=== PATIENT | male | born 1965 | race Caucasian/White ===

== ENCOUNTER 2019-06-15 05:27 | Day surgery (SDC) | payer BC, SELFPAY ==
[2019-04-11 08:44] VITALS: BMI 34.4
--- NOTE | 2019-06-14 11:02 | EKG12_ITS ---
Test Reason : PRE OP Blood Pressure : / mmHG Vent. Rate : 072 BPM Atrial Rate : 072 BPM P-R Int : 162 ms QRS Dur : 104 ms QT Int : 394 ms P-R-T Axes : 032 049 047 degrees QTc Int : 431 ms Normal sinus rhythm Normal ECG Confirmed by DALTON PRIEST, BERONICA ([id number]), supervising film or videotape editor DEVYN LOVING ([id number]) on 06/18/2019 11:43:12 AM Referred By: Jvaed Arvizu Confirmed By:JD HOFFMAN MD
--- NOTE | 2019-06-14 21:43 | PCM.HP.BLA ---
History and Physical Date of Admission: 06/15/19 HISTORY OF PRESENT ILLNESS 53 year old man presents for evaluation for abdominal wall contouring after weight loss from a laparoscopic gastric sleeve procedure in May,. He weighed 350 lbs initially and after surgery came down to 235 lbs. He has complaints of an abdominal panniculus from redundant skin and subcutaneous tissue after his weight loss. He has abdominal wall skin crease intertrigo for which he has used powders for relief. He also has concerns about some redundant skin and subcutaneous tissue in his flank areas and gluteal areas. He denies fever. He denies trauma. He has decided he wants to proceed with just the abdominal panniculectomy with completion abdominoplasty at this time. PAST MEDICAL HISTORY Arthritis Kidney stones PAST SURGICAL HISTORY Gastric bypass status for obesity ALLERGIES No Known Allergies MEDICATIONS NK FAMILY HISTORY Other - Arthritis, High cholesterol SOCIAL HISTORY Smoking Status: Unknown if ever smoked alcohol intake: never substance use type: does not use REVIEW OF SYSTEMS General - Denies fever and fatigue. Has had 115 lb weight loss after laparoscopic gastric sleeve procedure in May,. Eyes - Denies cataracts and glaucoma. ENT - Denies nasal congestion and sore throat. Endocrine - Denies excessive thirst and urination. Skin - Denies suspicious lesions and skin cancer. Has abdominal wall skin crease intertrigo. Musculoskeletal - Denies joint pain, weakness of muscles and joints, back pain, and arthritis. Has joint stiffness. Neuro - Denies headaches. Cardiovascular - Denies chest pain, fatigue, and shortness of breath with exertion. Psych - Denies anxiety and depression. Respiratory - Denies chronic cough and shortness of breath. Gastrointestinal - Denies nausea, vomiting, diarrhea, and constipation. Hematologic - Denies abnormal bruising and bleeding. Genitourinary - Denies hematuria and urinary frequency. PHYSICAL EXAMINATION General - Alert and Oriented HEENT - PERRL. EOMI. Throat is clear. Neck - Supple and nontender. No cervical adenopathy. Lungs - Clear to auscultation. Heart - Regular rate and rhythm. Abdomen - Soft and nondistended. No evidence of hernia formation. Has redundant skin and subcutaneous tissue in the lower anterior abdominal wall with an abdominal panniculus. No active abdominal wall skin crease noted at this time. Abdominal panniculus is nontender. Skin shows moderate elasticity. Has redundant skin and subcutaneous tissue in his flank areas and superior gluteal/lower back areas. Extremities - FROM. No axillary adenopathy. Radial pulses are palpable. No inguinal adenopathy. Femoral pulses are palpable. Neuro - CN II-XII grossly intact. Psych - Normal mood and affect. ASSESSMENT 1. Abdominal panniculus. 2. Excessive and redundant skin and subcutaneous tissue abdominal wall. 3. Diastasis of abdominal recti muscles. 4. Abdominal wall skin crease intertrigo. 5. Weight loss from gastric sleeve procedure. 6. Isolated adiposity bilateral flank areas and superior gluteal/lower back areas. PLAN Patient has redundant skin and subcutaneous tissue in his abdominal wall with a panniculus with associated intertrigo. He also has redundant skin and subcutaneous tissue with isolated adiposity in his bilateral flank areas and superior gluteal/lower back areas. He would benefit from an abdominal panniculectomy to help with his symptomatology. His insurance company denied the procedure at this time. He has decided to pursue the surgery as he knows he will be financially responsible for it. Discussed with the patient about available financing. He wants to hold off on the flank and buttocks surgery at this time. I had told him that I limit cosmetic surgery for each area to 6 hours. Therefore the abdominal surgery would be separate from the flank and buttocks surgery. His job cannot handle an extended amount of time off so he will proceed with the abdominal surgery only at this time. Also preoperatively he will need lab studies due to his weight reduction surgery (CBC, CMP, PT/PTT, Prealbumin, Uric Acid, Ferritin, B12/folate, Fat-Soluble Vitamins). Surgery will be done under general anesthesia on an outpatient basis. Patient was informed of the risks and complications of the procedure including alternatives to surgery. These were discussed with the patient personally. Patient voices understanding and wishes to proceed. Some of the risks and complications were included in a form from the [employer].
[2019-06-15] VITALS (11 sets, daily range): BP systolic 88–114; BP diastolic 52–91; PULSE 55–88; RESP 14–16; TEMP 36.4–36.7; O2SAT 92–96; BMI 34.2
[2019-06-15] MEDS: Lactated Ringers 1,000 ML 100 ML IV (06:34)
[2019-06-15] MEDS: Cefazolin 2 GM in 0.9% Normal Saline 100 ML IV (07:42)
[2019-06-15] MEDS: Mupirocin Ointment 22gm Tube 1 APPLIC (11:58)
--- NOTE | 2019-06-15 12:45 | PCM.OPRPT ---
Report of Operation Date of Procedure: 06/15/19 Pre-Operative Diagnosis: 1. Abdominal panniculus. 2. Excessive and redundant skin and subcutaneous tissue abdominal wall. 3. Diastasis of abdominal recti muscles. 4. Abdominal wall skin crease intertrigo. 5. Weight loss from gastric sleeve procedure. 6. Isolated adiposity bilateral flank areas and superior gluteal/lower back areas. Post-Operative Diagnosis: Same. Surgery/Procedure Performed:: 1. Abdominal panniculectomy with completion abdominoplasty. 2. Repair of diastasis of abdominal recti muscles. Description of Surgical Findings:: 53 year old man presents for evaluation for abdominal wall contouring after weight loss from a laparoscopic gastric sleeve procedure in May,. He weighed 350 lbs initially and after surgery came down to 235 lbs. He has complaints of an abdominal panniculus from redundant skin and subcutaneous tissue after his weight loss. He has abdominal wall skin crease intertrigo for which he has used powders for relief. He also has concerns about some redundant skin and subcutaneous tissue in his flank areas and gluteal areas. He denies fever. He denies trauma. He has decided he wants to proceed with just the abdominal panniculectomy with completion abdominoplasty at this time. Patient was informed of the risks and complications of the procedure including alternatives to surgery. These were discussed with the patient personally. Patient voices understanding and wishes to proceed. Some of the risks and complications were included in a form from the [employer]. IV Fluids - 2500 ml. Urine Output - 300 ml. I used Noel absorbable hemostat, (I used 2 vials). Reference Number - [id number]. Lot Number - [id number]. Expiration - February 22, 2024. law office manager: Xi Del Toro. law office manager: Leena Holley. Type of Anesthesia:: General Specimen's removed: The abdominal wall skin and subcutaneous tissue was not sent to Pathology since this was a cosmetic procedure. Drains: Timothy x2. Estimated Blood Loss (mL): 150 ml. Fluids Replaced: 2800 ml (IV Fluids 2500 ml, Urine Output 300 ml). Description of Procedure: In the preop area, the patient stood for markings. I marked the sternum to the umbilicus and from the umbilicus to the pubic area. I augustine horizontal markings in the abdominal wall skin crease by the pubis. Laterally the markings extended to the anterior superior iliac spine. Patient was taken to OR in supine position and was placed under general anesthesia. The abdomen was prepped and draped in the usual fashion. Ioban draping was also used. SCD's were placed for DVT prophylaxis. Perioperative antibiotics were given intravenously. A ogden catheter was placed. Using xylocaine with epinephrine, the horizontal marking was infiltrated. After waiting 5 minutes for the anesthetic to take effect, I made incision in the pubic area down through Scot's fascia to the abdominal wall fascia. Dissection proceeded superiorly to the umbilicus. I made a naomy incision in the umbilicus and dissected the abdominal wall skin flap off the umbilicus. I then proceeded with dissection up to the xiphoid. Lateral dissection was done to the lateral rectus sheath. There was about 4.5 cm of diastasis of his abdominal recti muscles. The wound was irrigated with Irrisept 0.05% Chlorhexidine solution followed by saline irrigation. Hemostasis was obtained with electrocautery. Repair of his diastasis of his abdominal recti muscles was done with 0 Surgipro in two layers. The first layer was a simple running suture. This was followed by horizontal mattress interrupted buried sutures. I placed two size 15 Timothy drains through separate stab incisions laterally and secured to the skin with 3-0 Nylon suture. I then excised sub-Scot's fat in the abdominal wall skin flap to minimize seroma postoperatively. I sprayed Noel absorbable hemostat into the wound also to minimize seroma formation postoperatively. I used two vials. I temporarily closed the incision with the patient flexed 30 degrees with 2-0 Vicryl interrupted sutures. The excess skin laterally was placed on a small amount of stretch and excised. After temporarily closing the incision, I placed vertical markings to aid in wound closure. I palpated the umbilicus through the skin and made an inferior V shaped incision. The temporary sutures were removed. Where the umbilical incision was made, I thinned out some of the subcutaneous tissue around the incision. I placed 3-0 Vicryl sutures from the dermis of the abdominal wall skin flap to the abdominal wall fascia and then the dermis of the umbilicus. I then placed 2-0 Vicryl sutures from the underlying fascia of the abdominal wall skin flap to the abdominal wall fascia with the flap placed on a little stretch to help minimize seroma formation. I placed 3 sutures on either side of the umbilicus. There was some redundant subcutaneous tissue in the pubic area that was excised to help with final contouring. Additional saline irrigation was done followed by Hemostasis with electrocautery. I then closed the abdominal incision with 2-0 Vicryl figure of eight interrupted sutures for Scot's fascial layer. The deep dermis and subcutaneous tissue was approximated with 3-0 Monocryl interrupted sutures. The skin was approximated with 3-0 V lock unidirectional barbed running subcuticular suture. The 3-0 Vicryl sutures were then closed around the umbilicus in the four quadrants. Additional 3-0 Vicryl interrupted sutures were used for final umbilical closure. Initially we placed Histoacryl skin tissue adhesive on the incision. Right away we noticed some redness which could be related to an allergic reaction. It was wiped off quickly before drying. Antibiotic ointment was applied to the incision instead. Xeroform gauze was placed in the umbilicus followed by a gauze dressing to absorb moisture. Kerlix gauze was placed over the lower incision followed by ABD pads compression. An abdominal binder was then placed. At the end of the procedure, the ogden catheter was removed. The skin and subcutaneous tissue that was excised was weighed in the OR and measured 1924 grams. Patient tolerated the procedure well and was sent to PACU in satisfactory condition. Before discharge, will obtain labs for continued evaluation of his weight reduction surgery. These include (CBC, CMP, PT/PTT, Prealbumin, Uric Acid, Ferritin, Vitamin B12, Folate, Vitamin A, and Vitamin D). Also before discharge he will receive chemoprophylaxis with Lovenox to minimize the risk of DVT in these patients. Postop ambulation is encouraged. Patient will be sent home on antibiotics and pain medication. Patient will followup on 06/18/19. The drains will be removed in 10-14 days. He will be maintained on antibiotics until the drains are removed. He will maintain the abdominal wall binder for several weeks and keep head elevated and maintain lifting restriction. Grafts/Implants Used: None. - Complications None. - Admit VTE Documentation VTE Present on Admission: No VTE Mechan Device Prophylaxis: SCD's VTE Pharm Prophylaxis ordered?: Yes Code Visit Surgery Charges - Cosmetic CPT - 04678 ICD-10 - E65, L98.7, L30.4, R63.4, Z98.84, M62.08 89081 L98.7, M62.08, R63.4, Z98.84, E65, L30.4
--- NOTE | 2019-06-15 12:58 | PCM.DC ---
You will use the following diet at home:: No restrictions, Other - encourage nutritional supplementation with protein to help the healing process. Discharge Activity: May not drive while taking narcotic pain medications., May Not Shower - until the drains are removed., - - keep head elevated. no heavy lifting. wear abdominal binder down over the hips. May shower in (days): 14 - after the drains are removed. May resume sexual activity in: 10-14 days Weight Bearing Status: Weight bearing as tolerated Lifting Restrictions: 20 lbs. Keep extremity elevated above heart level: - - elevate head. Call your doctor if your incision/area has: Continuous Slow Oozing, Sudden Increased Bleeding, Increased Pain/ Swelling, Increased Redness, Foul Smelling Discharge, Swelling at the incision site Call your doctor if you observe: Fever of 101 or Higher, Coldness, Increased Pain, Shortness of breath, Chest pain, Calf discomfort, Uncontrolled pain Suture Line Care: - - apply antibiotic ointment to suture line and umbilcus daily. Change Dressing in (Days):: 1 - dry dressings daily to suture line and in umbilicus. Cleanse incision/area with: - - may get incision wet in the shower after the drains are removed. Drain: Suction - elder drain x2 to bulb suction. empty and record output daily. Allergies/Adverse Reactions: Allergies No Known Allergies Allergy (Verified 06/08/19 16:03) Medications to take at Discharge Cefadroxil [Duricef] 500 mg PO BID #30 cap 06/15/19 Diazepam [Valium] 5 mg PO 4X/DAY PRN PRN #30 tablet 06/15/19 Docusate Sodium [Colace] 100 mg PO BID #60 cap 06/15/19 Lactobacillus Acidophilus/Fos [Acidophilus Probiotic Tablet] 1 ea PO BID #30 tab 06/15/19 Oxycodone HCl/Acetaminophen [Percocet 5/325] 1 tablet PO Q4H PRN PRN 7 Days #40 tablet 06/15/19 proMETHazine tablet [Phenergan tablet] 25 mg PO 4X/DAY PRN PRN #30 tab 06/15/19 The following prescriptions were given: Lactobacillus Acidophilus/Fos [Acidophilus Probiotic Tablet] 1 ea PO BID #30 tab Transmission Status: Pending to [facility] Docusate Sodium [Colace] 100 mg PO BID #60 cap Transmission Status: Pending to [id number] Cefadroxil [Duricef] 500 mg PO BID #30 cap Transmission Status: Pending to [facility] Oxycodone HCl/Acetaminophen [Percocet 5/325] 1 tablet PO Q4H PRN PRN 7 Days #40 tablet PRN Reason: Pain Transmission Status: Sent to [facility] proMETHazine tablet [Phenergan tablet] 25 mg PO 4X/DAY PRN PRN #30 tab PRN Reason: Nausea Transmission Status: Pending to [facility] Diazepam [Valium] 5 mg PO 4X/DAY PRN PRN #30 tablet PRN Reason: Spasms Transmission Status: Sent to [facility] Primary Care Physician: Care Physician,No Primary [Primary Care Provider] - Test Results: Test results from this visit will be discussed in further detail at your follow-up appointment, if applicable. Please Follow Up With: Javed Arvizu MD When: tuesday06/18/19. call [phone] for appt. Proposed Discharge Date: 06/15/19
[2019-06-15 13:40] LABS: Hematocrit 41.9 % (40-54); Mean Corp Hgb Conc 33.4 g/dL (32-36); Mean Corpuscular Hgb 29.8 pg (27.0-32.0); Mean Corpuscular Volume 89.1 fL (80-94); Mean Platelet Vol. 9.1 fl (6.2-12.0); Platelet Count 232 K/mm3 (150-450); RBC Distribution Width CV 12.8 % (11.6-14.6); RBC Distribution Width SD 42.2 fl (35.1-43.9)
[2019-06-15 13:44] LABS: International Normalized Ratio 1.1; Prothrombin Time (Protime)PT. 14.1 SECONDS (11.7-14.9)
[2019-06-15 13:51] LABS: Partial Thromboplast Time 24.2 Seconds (24.1-36.2)
[2019-06-15 14:14] LABS: Vitamin B12 710 pg/mL (211-911)
[2019-06-15 14:44] LABS: AST(SGOT) 17 U/L (15-37); Alanine Aminotransfer ALT/SGPT 13 U/L (16-61); Albumin, Serum 3.4 g/dL (3.2-5.0); Alkaline Phosphatase 52 U/L (45-117); Anion Gap 5 (5-15); BUN 19 mg/dL (7-18); BUN/Creat Ratio 15.3 RATIO (10-20); Calcium,Total 8.3 mg/dL (8.5-10.1); Chloride 108 mmol/L (98-107); Creatinine, Serum 1.24 mg/dL (0.70-1.30); EST Glomerular Filtration Rate 64 mL/min (>60); Est Glom Filt Rate - Afr Amer 78 mL/min (>60); Estimated Creatinine Clearance 73.88 ml/min; Ferritin 88 ng/mL (26-388); Globulin 3.4 g/dL (2.2-4.2); Glucose 161 mg/dL (74-106); Potassium 3.7 mmol/L (3.5-5.1); Prealbumin 23.6 mg/dL (20.0-40.0); Protein, Total 6.8 g/dL (6.4-8.2); Sodium Level 141 mmol/L (136-145); Uric Acid 5.3 mg/dL (3.5-7.2)
[2019-06-15] MEDS: oxyCODONE 5 MG Tablet 10 MG PO (16:48)
[2019-06-15] MEDS: Enoxaparin 40 MG/0.4 ML Syringe SC (17:09)
[2019-06-25 13:07] LABS: Vitamin A, Retinol 41.1 ug/dL (20.1-62.0)
== END 2019-06-15 17:41 | disposition home or self-care (01) ==
LOC: SDC 05:28 → AC 05:30
PROVIDERS: Referring Provider Surgery; Visit Provider Surgery
PROC: (CPT 15830; principal; 2019-06-15 07:15)
DX: L98.7 Excessive and redundant skin and subcutaneous tissue (principal); E65 Localized adiposity; M62.08 Separation of muscle (nontraumatic), other site; L30.4 Erythema intertrigo; M19.90 Unspecified osteoarthritis, unspecified site; Z79.899 Other long term (current) drug therapy; Z87.442 Personal history of urinary calculi; Z98.84 Bariatric surgery status
CPT/HCPCS: 15830; 22999; 80053; 82607; 82652; 82728; 82746; 84134; 84550; 84590; 85027; 85610; 85730; 93005; J7120; J2405

== ENCOUNTER 2021-02-27 16:50 | Observation (INO) | payer SELFPAY ==
[2020-07-10 15:53] VITALS: BMI 33.1
--- NOTE | 2021-02-20 09:32 | EKG12_ITS ---
Test Reason : PRE OP Blood Pressure : / mmHG Vent. Rate : 066 BPM Atrial Rate : 066 BPM P-R Int : 166 ms QRS Dur : 100 ms QT Int : 396 ms P-R-T Axes : 052 061 065 degrees QTc Int : 415 ms Normal sinus rhythm Normal ECG Confirmed by ROZINA PRIEST, HO ([id number]), editor department DEVYN LOVING ([id number]) on 02/23/2021 9:37:45 AM Referred By: Javed Arvizu Confirmed By:HO HANDY MD
--- NOTE | 2021-02-26 23:14 | PCM.HP.BLA ---
History and Physical Date of Admission: 02/27/21 HISTORY OF PRESENT ILLNESS 54 year old man presents for evaluation for body contouring after weight loss from a laparoscopic gastric sleeve procedure in May,. He weighed 350 lbs initially and after surgery came down to 235 lbs. He underwent an abdominoplasty on 06/15/19. He also has concerns about some redundant skin and subcutaneous tissue in his flank areas and superior gluteal/lower back areas. He denies fever. He denies trauma. He also has concerns about redundant skin and subcutaneous tissue in his anterior neck that is bothersome. PAST MEDICAL HISTORY Diastasis of rectus abdominis Intertrigo Recent weight loss Excessive and redundant skin and subcutaneous tissue Abdominal panniculus Arthritis Kidney stones PAST SURGICAL HISTORY Gastric bypass status for obesity abdominoplasty ALLERGIES No Known Allergies MEDICATIONS Lactobacillus acidophilus FAMILY HISTORY Other - Arthritis, High cholesterol SOCIAL HISTORY Smoking Status: Never smoker alcohol intake: never substance use type: does not use REVIEW OF SYSTEMS General - Denies fever and fatigue. Has had 115 lb weight loss after laparoscopic gastric sleeve procedure in May,. Eyes - Denies cataracts and glaucoma. ENT - Denies nasal congestion and sore throat. Endocrine - Denies excessive thirst and urination. Skin - Denies suspicious lesions and skin cancer. Had abdominoplasty on 06/15/19. Musculoskeletal - Denies joint pain, weakness of muscles and joints, back pain, and arthritis. Has joint stiffness. Neuro - Denies headaches. Cardiovascular - Denies chest pain, fatigue, and shortness of breath with exertion. Psych - Denies anxiety and depression. Respiratory - Denies chronic cough and shortness of breath. Gastrointestinal - Denies nausea, vomiting, diarrhea, and constipation. Hematologic - Denies abnormal bruising and bleeding. Genitourinary - Denies hematuria and urinary frequency. PHYSICAL EXAMINATION General - Alert and Oriented HEENT - PERRL. EOMI. Throat is clear. Has some mild cheek sagging with mild jowl formation. Has moderate nasolabial folds. Has dermatochalasis upper eyelids bilaterally. Lower eyelids show no evidence of scleral show or ectropion. He does have mild brow ptosis just below the superior orbital rim. Mild facial rhytids noted. Oral commissures show no drooping at this time. Neck - Supple and nontender. No cervical adenopathy. Has redundant skin and subcutaneous tissue in the anterior neck. There is decussation of the platysma muscles. Hyoid bone slightly obtuse. Skin shows moderate elasticity. Lungs - Clear to auscultation. Heart - Regular rate and rhythm. Abdomen - Soft and nondistended. No evidence of hernia formation. Has good abdominal wall contour anteriorly. Has redundant skin and subcutaneous tissue in his flank areas and superior gluteal/lower back areas. Skin shows moderate elasticity. Extremities - FROM. No axillary adenopathy. Radial pulses are palpable. No inguinal adenopathy. Femoral pulses are palpable. Neuro - CN II-XII grossly intact. Psych - Normal mood and affect. ASSESSMENT 1. Redundant skin and subcutaneous tissue anterior neck. 2. Decussation of platysma muscles anterior neck. 3. Weight loss from gastric sleeve procedure. 4. Isolated adiposity bilateral flank areas and superior gluteal/lower back areas with redundant skin and subcutaneous tissue. 5. History of abdominoplasty. PLAN Patient has redundant skin and subcutaneous tissue with isolated adiposity in his bilateral flank areas and superior gluteal/lower back areas. He would benefit from a completion lower body lift with dermolipectomy involving bilateral flanks and superior gluteal/lower back areas. He also has redundant skin and subcutaneous tissue anterior neck with underlying decussation of platysma muscles. He would benefit from a neck lift to help with his neck contouring. He is not interested in any other facial rejuvenation at this time (face lift, blepharoplasty, and brow lift). I told him in the future, those procedures can be done. Right now he is concentrating on his neck. Once his neck is improved, he will notice that his face and eyelids will need rejuvenation improvement as well. These surgeries are not covered by his insurance carrier. He knows he will be financially responsible for it. Discussed with the patient about available financing. Will proceed with the completion lower body lift at this time. After healing will proceed with the neck lift. At the time of the lower body lift, will consider some lipoplasty to help with contouring as well. Surgeries will be done under general anesthesia with a surgical observation overnight stay in the hospital. He will have drains in and be maintained on antibiotics until the drains are removed. He will also have compression garments as well for several weeks to minimize seroma formation. Also preoperatively he will need lab studies due to his weight reduction surgery (CBC, CMP, PT/PTT, Prealbumin, Uric Acid, Ferritin, B12/folate, Vitamin A and D). He will talk to his PCP about the lab studies. Patient was informed of the risks and complications of the procedure including alternatives to surgery. These were discussed with the patient personally. Patient voices understanding and wishes to proceed. Some of the risks and complications were included in a form from the [employer]. Will provide a package monroy for the procedures. Once he decides on timing for the surgeries, he will return for a preop visit. Any last minute questions will be answered and the office consent will be signed. We discussed the current risks associated with COVID-19. While it is understood that there is a community spread of COVID-19, the risk of satish COVID-19 while at [facility] ([facility]) is very low; however, the risk cannot be completely mitigated because of the community spread of the disease. We discussed in detail the risk of exposure to and/or potential harm posed by the COVID-19 virus with having a surgery/procedure at this time versus the risk of delaying the surgery/procedure. It is not possible to know either the risk of delaying the surgery or procedure or chance of getting an infection with perfect accuracy, but a joint decision was made to proceed at this time with the scheduled surgery/procedure as indicated on the consent form. Patient was notified that we will need to comply with any screening or testing [facility] wishes to perform or that surgery may be delayed for any positive results. Procedure Criteria Procedure Type:?Elective COVID Risk Discussion: The surgeon/proceduralist and patient have discussed in detail the risk of exposure to and/or potential harm posed by the COVID-19 virus with having a surgery/procedure at this time versus the risk of delaying the surgery/procedure.? It is not possible to know either the risk of delaying the surgery or procedure or chance of getting an infection with perfect accuracy, but a joint decision was made between the patient and the surgeon/proceduralist to proceed at this time with the scheduled surgery/procedure as indicated on the consent form.
[2021-02-27] VITALS (10 sets, daily range): BP systolic 111–138; BP diastolic 72–83; PULSE 60–95; RESP 16; TEMP 35.6–36.7; O2SAT 91–97; BMI 33.7
[2021-02-27] MEDS: Lactated Ringers 1,000 ML 100 ML IV ×4 (07:45→16:25)
[2021-02-27] MEDS: Cefazolin 2 GM in 0.9% Normal Saline 100 ML IV (08:45)
[2021-02-27] MEDS: Lidocaine 1% /Epi 1:100 (20ml) 20 ML Vial (10:00)
[2021-02-27 13:06] LABS: Bedside Glucose 126 mg/dL (70-110)
--- NOTE | 2021-02-27 16:18 | PCM.OPRPT ---
Problems Associated Problem List Diagnoses (1) Skin laxity: (2) Platysmal band of neck: (3) Excessive and redundant skin and subcutaneous tissue: (4) Recent weight loss: (5) Elective procedure for unacceptable cosmetic appearance: (6) History of abdominoplasty: (7) History of weight loss surgery: Report of Operation Date of Procedure: 02/27/21 Pre-Operative Diagnosis: 1. Redundant skin and subcutaneous tissue anterior neck with skin laxity. 2. Decussation of platysma muscles anterior neck. 3. Platysma bands anterior neck. 4. Weight loss from gastric sleeve procedure. 5. Isolated adiposity bilateral flank areas and superior gluteal/lower back areas with redundant skin and subcutaneous tissue. 6. History of abdominoplasty. Post-Operative Diagnosis: 1. Redundant skin and subcutaneous tissue anterior neck with skin laxity. 2. Decussation of platysma muscles anterior neck. 3. Platysma bands anterior neck. 4. Weight loss from gastric sleeve procedure. 5. Isolated adiposity bilateral flank areas and superior gluteal/lower back areas with redundant skin and subcutaneous tissue. 6. History of abdominoplasty. 7. Partial injury right greater auricular nerve. Surgery/Procedure Performed:: 1. Neck lift with platysmaplasty. 2. Epineural repair partial injury right greater auricular nerve. Description of Surgical Findings:: 54 year old man presents for evaluation for body contouring after weight loss from a laparoscopic gastric sleeve procedure in May,. He weighed 350 lbs initially and after surgery came down to 235 lbs. He underwent an abdominoplasty on 06/15/19. He also has concerns about some redundant skin and subcutaneous tissue in his flank areas and superior gluteal/lower back areas. He denies fever. He denies trauma. He also has concerns about redundant skin and subcutaneous tissue in his anterior neck that is bothersome. Patient was informed of the risks and complications of the procedure including alternatives to surgery. These were discussed with the patient personally. Patient voices understanding and wishes to proceed. Some of the risks and complications were included in a form from the [employer]. I used Noel absorbable hemostat, I used 3 vials). Reference Number - [id number]. Lot Number - [id number]. Expiration - November 21, 2025. Surgeon: Javed Arvizu career resource specialist: Dylon Tony Type of Anesthesia: General Specimen's removed: None. Drains: Timothy. Estimated Blood Loss (mL): 150. Fluids Replaced: 3595 ml. (IV Fluids 3000 ml, Urine Output 595 ml). Description of Procedure: Patient was seen in the preop area and placed in the sitting position. Markings were made posterior to the chin crease horizontally for 5 cm. I made markings in the postauricular area bilaterally and curved toward the hairline and extended inferiorly. Patient was then taken to OR in supine position and was placed under general anesthesia. The face and neck areas were prepped and draped in the usual fashion. SCD's were placed for DVT prophylaxis. Perioperative antibiotics were given intravenously. A ogden catheter was placed. Using xylocaine with epinephrine, the markings were infiltrated. After waiting 5 minutes for the anesthetic to take effect, I made an incision horizontally posterior to the chin crease. Dissection was carried down to the platysma muscle. There was a decussation of the platysma muscles. There was also some subplatysmal fat. I dissected bilateral neck flaps at the level of the platysma muscle toward the ears. I then excised the subplatysmal fat. The anterior digastric muscle bellies were not enlarged. The submandibular gland did not appear ptotic and bulging at this time. I tightened the platysma muscular sling in the midline as a platysmaplasty with 3-0 Prolene simple running buried suture. I did a double layer closure with a second 3-0 Vicryl simple running buried suture. I then made incisions in the post-auricular areas down into the subcutaneous tissue. I first started on the left and then when finished, I went over to the right side. After the incisions were made, I dissected down to the platysma muscle. I was able to combine both dissections into one continuous undermined area. Also during the dissection, I located the greater auricular nerve bilaterally as it was traversing over the sternomastoid muscle and preserved the nerve on the left. It was noted there was a partial injury (approximately 30%) to the greater auricular nerve on the right. An epineural repair of the partial injury (approximately 30%) was done using 8.0 Prolene simple interrupted sutures. There was some persistent bleeding on the dissection of the left neck. I got control with gauze compression and electrocautery. Without realizing the closeness to the skin, a small thermal burn was done. It was noticed and no more cautery was done in that area. I observed the injury, about 5 mm thermal injury, and felt it would need to be excised and suture repaired. An ellipse of skin was excised over the thermal injury. The wound was closed in a layered fashion with 5-0 Monocryl for the deep dermis and subcutaneous tissue. The skin was approximated with 5-0 Prolene simple interrupted sutures. The length of the closure was 1.5 cm. I irrigated the cervical wound with saline. Hemostasis was obtained with electrocautery. I sprayed Noel absorbable hemostat into the cervical wound to minimize seroma formation. A size 15 Timothy drain was placed through a separate stab incision laterally in the hairline of the left neck. It was secured to the skin with 3-0 Nylon suture. The submental incision was closed in a layered fashion 3-0 Vicryl interrupted sutures for the deep subcutaneous tissue. The deep dermis and subcutaneous tissue was approximated with 5-0 Monocryl interrupted sutures. The skin was approximated with 4-0 V lock unidirectional barbed running subcuticular suture. This was followed with Histoacryl skin tissue adhesive. The postauricular incisions which curved down the into the hairline were approximated in a layered fashion with 4-0 Monocryl interrupted sutures for the deep dermis and subcutaneous tissue. The skin was approximated with 5-0 Prolene simple interrupted sutures. Antibiotic ointment was applied to the postauricular incisions. This was followed with 4x4 gauze, a dry Kerlix roll and followed with an rafia wrap for compression. We had a specialized compression garment for the neck, and when I opened it was too small for the patient. After all the wounds were closed, a lateral view saw a nine improvement in the contour in the neck with a much better defined cervicomandibular angle. It was not 90 degrees because of the low lying hyoid bone. The amount of skin that i removed after the neck lift and platysmaplasty was about 5 cm or 2 inches from each postauricular area. Patient tolerated the procedure well and was sent to PACU in satisfactory condition. Patient will be sent upstairs for continued postop care. He will have the drain removed next week. The compression rafia wrap will be needed for 4-6 weeks until a larger compression garment is available. He will keep his head elevated during the initial postop period. He will strive for head and neck extension and to minimize neck flexion because it can lead to contour irregularities. He will be on a lifting restriction as well. Grafts/Implants Used: Noel. Complications None. Admit VTE Documentation VTE Present on Admission: No VTE Mechan Device Prophylaxis: SCD's VTE Pharm Prophylaxis ordered?: Yes Addendum Addendum: Surgery Charges CPT - 69128-87 ICD-10 - L57.4, M62.08, L98.7, R63.4, Z98.84
[2021-02-27] MEDS: Mupirocin Ointment 22gm Tube 1 APPLIC (16:36)
[2021-02-27] MEDS: Enoxaparin 40 MG/0.4 ML Syringe SC (21:33)
--- NOTE | 2021-02-27 23:16 | NURSING ---
Pt up OOB for first time since surgery- tolerated well. Pt denies lightheadedness/dizziness.
[2021-02-28 02:30] VITALS: BP 121/73; PULSE 70; RESP 14; TEMP 36.5; O2SAT 94
[2021-02-28] MEDS: oxyCODONE 5 MG Tablet 10 MG PO ×2 (03:26→10:40)
[2021-02-28] MEDS: Lactated Ringers 1,000 ML 60 ML IV (03:28)
[2021-02-28 06:22] VITALS: BP 116/77; PULSE 65; RESP 16; TEMP 36.6; O2SAT 95
[2021-02-28 06:26] LABS: Hematocrit 42.5 % (40-54); Hemoglobin 13.9 g/dL (13.0-16.5); Mean Corp Hgb Conc 32.7 g/dL (32-36); Mean Corpuscular Hgb 30.5 pg (27.0-32.0); Mean Corpuscular Volume 93.2 fL (80-94); Mean Platelet Vol. 9.1 fl (6.2-12.0); Platelet Count 215 K/mm3 (150-450); RBC Distribution Width CV 13.1 % (11.6-14.6); RBC Distribution Width SD 44.7 fl (35.1-43.9); Red Blood Count 4.56 M/mm3 (4.6-6.2); White Blood Count 11.3 K/mm3 (4.4-11.0)
[2021-02-28] MEDS: diazePAM 5 MG Tablet PO (06:41)
[2021-02-28 07:07] LABS: Anion Gap 2 (5-15); BUN 19 mg/dL (7-18); BUN/Creat Ratio 14.2 RATIO (10-20); Calcium,Total 8.5 mg/dL (8.5-10.1); Chloride 106 mmol/L (98-107); Creatinine, Serum 1.34 mg/dL (0.70-1.30); EST Glomerular Filtration Rate 58 mL/min (>60); Est Glom Filt Rate - Afr Amer 71 mL/min (>60); Estimated Creatinine Clearance 66.76 ml/min; Glucose 119 mg/dL (74-106); Potassium 4.3 mmol/L (3.5-5.1); Sodium Level 140 mmol/L (136-145)
[2021-02-28 08:11] VITALS: PULSE 90
[2021-02-28] MEDS: Multivitamins,Therapeutic Tablet 1 TABLET PO (08:18)
[2021-02-28] MEDS: Venlafaxine XR 37.5 MG Capsule PO (08:18)
[2021-02-28] MEDS: Calcium Carbonate 500 MG Tablet 750 MG PO (08:18)
[2021-02-28] MEDS: Enoxaparin 40 MG/0.4 ML Syringe SC (08:18)
[2021-02-28 10:43] VITALS: BP 120/70; PULSE 69; RESP 12; TEMP 36.6; O2SAT 95
--- NOTE | 2021-02-28 10:53 | NURSING ---
ogden cathether removed. pt now ambulating in [place].
[2021-02-28 13:25] VITALS: BP 116/75; PULSE 65; PULSE 70; RESP 18; TEMP 36.9; O2SAT 95
--- NOTE | 2021-02-28 14:42 | PCM.PN.SRG ---
Subjective Subjective Postop #1 Patient is resting comfortably. Objective Data Objective Data Vital Signs: Vital Signs Temp Pulse Resp BP Pulse Ox 98.5 F 70 18 116/75 95 02/28/21 13:25 02/28/21 13:25 02/28/21 13:25 02/28/21 13:25 02/28/21 13:25 Oxygen Flow Rate (L/min) 2 Oxygen Delivery Method Room Air Weight: 248 lb 7.375 oz Body Mass Index (BMI) 33.7 Intake & Output: Intake and Output for Last 24 Hours 02/26/21 02/27/21 02/28/21 23:59 23:59 23:59 Intake Total 3643.67 / 3643.67 534 / 534 Output Total 705 / 1380 1854 / 1854 Balance 2938.67 / 2263.67 -1320 / -1320 Drainage 10 ml yesterday, 104 ml today. Lab / Micro Data Attestation: I reviewed the patient's lab results. Lab results narrative: Creatinine is 1.34. Slightly elevated. In May,, it was 1.24. Will recheck as an outpatient. Result Diagrams: 02/28/21 06:10 02/28/21 06:10 Labs: Laboratory Results - last 24 hr 02/28/21 06:10: WBC 11.3 H, RBC 4.56 L, Hgb 13.9, Hct 42.5, MCV 93.2, MCH 30.5, MCHC 32.7, RDW Std Deviation 44.7 H, RDW Coeff of Los 13.1, Plt Count 215, MPV 9.1 02/28/21 06:10: Sodium 140, Potassium 4.3, Chloride 106, Carbon Dioxide 32.0, Anion Gap 2 L, BUN 19 H, Creatinine 1.34 H, Estim Creat Clear Calc 66.76, Est GFR (MDRD) Af Amer 71, Est GFR (MDRD) Non-Af 58 L, BUN/Creatinine Ratio 14.2, Glucose 119 H, Calcium 8.5, Prealbumin 25.0 Physical Exam Narrative General - Alert and Oriented HEENT - PERRL. EOMI. Neck - Supple and nontender. No cervical adenopathy. Submental incision and bilateral postauricular incisions dry and intact. No vascular compromise noted on the neck skin flaps. No clinical evidence of hematoma. Good neck contour noted. Abdomen - Soft and nondistended. Extremities - FROM. Neuro - CN II-XII grossly intact. Psych - Normal mood and affect. Assessment & Plan Assessment/Plan (1) Skin laxity: (2) Excessive and redundant skin and subcutaneous tissue: (3) Platysmal band of neck: (4) Recent weight loss: (5) History of weight loss surgery: PLAN: Patient is tolerating po analgesia. His submental and postauricular incisions are dry and intact. No clinical evidence of hematoma. vascular compromise to neck skin flaps. Good neck contour noted. Prealbumin was 25.0. Encourage nutritional supplementation with protein to help the healing process. Creatinine was 1.34. Slightly elevated. Back in May,, it was 1.24. Will recheck another level after discharge. Discharge home today. Followup office Tuesday03/03/21. Wrote script for Cleocin until the drain is removed.. Wrote script for Acidophilus Probiotic. Wrote scripts for Percocet for pain (40 tabs) and for Valium for spasm, TID, (20 tabs). Wrote scripts for Colace for constipation (60 tabs) and for Phenergan for nausea (30 tabs) and a refill. Keep head elevated. Continue lifting restriction. Continue compression with SIXTO wrap. Stressed to the patient to keep the head and neck extended. Minimize flexion as it can lead to suboptimal result. Patient voiced understanding.
--- NOTE | 2021-02-28 14:42 | PCM.DC ---
Discharge Instructions Diet Discharge Diet: No restrictions and - (encourage nutritional supplementation with protein to help the healing process.) Activity Discharge Activity: May Not Drive (for at least a week and while on narcotics for pain.), May Not Shower (until the drain is removed in the office next week.) and - (keep head elevated. no heavy lifting. Minimize flexion of the neck. Try and keep it extended as much as possible. sleep on 2 pillows.) May shower in (days): 4 (will remove the drain in office on 03/03/21.) May resume sexual activity in: 4-6 weeks Weight Bearing Status: Weight bearing as tolerated Lifting Restrictions: 20 lbs. Keep extremity elevated above heart level: - (keep head elevated and extended as much as possible. minimize head flexion) Dressing / Incision Call your doctor if your incision/area has: Continuous Slow Oozing, Sudden Increased Bleeding, Increased Pain/ Swelling, Increased Redness, Foul Smelling Discharge and Swelling at the incision site Call your doctor if you observe: Fever of 101 or Higher, Coldness, Increased Pain, Shortness of breath, Chest pain, Calf discomfort and Uncontrolled pain Suture Line Care: - (dry dressing daily. apply antibiotic ointment to suture lines daily. apply compression rafia daily.) Change Dressing in: 1 day (dry dressings daily followed by rafia compression.) Cleanse incision/area with: - (may shower from the neck down in two days. then wash face and neck gently in the sink then apply dressing.) Drain: Suction (elder drain to bulb suction. empty and record output daily.) Follow Up Care Please Follow Up With: Javed Arvizu MD When: tuesday03/03/21. call [phone] for appt. Test Results: Test results from this visit will be discussed in further detail at your follow-up appointment, if applicable. Discharge Plan Admission Admit Date/Time: 02/27/21 16:50 Primary Reason for Your Visit: neck lift Attending Provider: Javed Arvizu Primary Care Provider: Maylin Zuleta Discharge Orders/Prescriptions Prescriptions: New clindamycin HCl [Cleocin HCl] 300 mg capsule 300 mg PO TID 5 Days Qty: 15 RF: 0 oxycodone-acetaminophen [Percocet] 5-325 mg tablet 1 tab PO Q4H PRN (Reason: pain (scale score 7-10)) 7 Days Qty: 40 RF: 0 diazepam [Valium] 5 mg tablet 5 mg PO TID PRN (Reason: spasms) Qty: 20 RF: 0 L.acidoph,saliva-B.bif-S.therm [Acidophilus Probiotic Blend] 175 mg capsule 1 cap PO DAILY Qty: 10 RF: 0 docusate sodium [Colace] 100 mg capsule 100 mg PO BID Qty: 60 RF: 0 promethazine 25 mg tablet 25 mg PO Q6H PRN (Reason: nausea and vomiting) Qty: 30 RF: 1 Continued cyanocobalamin (vitamin B-12) [Vitamin B-12] 1,000 mcg Tablet 1,000 mcg PO MO RF: 0 calcium carbonate [Tums] 300 mg (750 mg) Tablet,Chewable 750 mg PO DAILY RF: 0 cholecalciferol (vitamin D3) [Vitamin D3] 125 mcg (5,000 unit) Tablet 125 mcg PO DAILY RF: 0 Flintstones with Iron 18 mg iron Tablet,Chewable 1 tab PO DAILY RF: 0 No Action desvenlafaxine succinate [Pristiq] 50 mg Tablet Extended Release 24 Hr 50 mg PO DAILY RF: 0 Referrals / Follow Up: Maylin Zuleta PA [Primary Care Provider] - Disposition Disposition (needs filled in before D/C Order can be placed): Home, Self Care
== END 2021-02-28 15:23 | disposition home or self-care (01) ==
LOC: SDC 17:03 → MS3 18:26
PROVIDERS: Admitting Provider Surgery; PCP Physician Assistant; Referring Provider Surgery; Visit Provider Surgery
PROC: (CPT 12041; principal; 2021-02-27 08:15)
DX: L98.7 Excessive and redundant skin and subcutaneous tissue (principal); Z98.84 Bariatric surgery status; M19.90 Unspecified osteoarthritis, unspecified site; E65 Localized adiposity; L57.4 Cutis laxa senilis; L76.81 Other intraoperative complications of skin and subcutaneous tissue; T20.27XA Burn of second degree of neck, initial encounter; Y63.5 Inappropriate temperature in local application and packing; Y81.3 Surgical instruments, materials and general- and plastic-surgery devices (including sutures) associated with adverse incidents; Y92.234 Operating room of hospital as the place of occurrence of the external cause; Y99.8 Other external cause status; Z41.1 Encounter for cosmetic surgery
CPT/HCPCS: 00300; 12041; 15825; 16020; 36415; 80048; 82962; 84134; 85027; 93005; 96365; 96366; 96372; 99218; 99251; J7120; G0378; G0463; J2405; Q9968